=== PATIENT | male | born 1965 | race Caucasian/White ===

== ENCOUNTER 2018-12-05 19:48 | Emergency (ER) | payer MEDICAID, OTHER ==
[~2018-12-05] VITALS: Wt 103.6 kg
[~2018-12-05 19:48] MED LIST: ACET325T33 PO; ACET500C5 PO; ALBU18HF INHALATION; AZIT250T PO; GUAI473L22 PO; GUAI5SYR2 PO; benazepril PO
[2018-12-05] MEDS ORDERED: KETOROLAC 60 MG INJ IM STA (21:46)
[2018-12-05 22:20] VITALS: BP 155/90; PULSE 72; RESP 18
[2018-12-05] MEDS ORDERED: IBUP-1542 PO (22:27)
--- NOTE | 2018-12-06 00:45 | ERD ---
ER Documentation Chief Complaint Chief Complaint bib self, cc: toothache x 10 days, given atb po tx, with tylenol HPI 53-year-old male patient with a past medical history of hypertension presents the ED complaining of a dental pain that started about 10 days ago. Patient reports that he went to the dentist earlier today and was given Tylenol 3 and amoxicillin. Patient reports that he has been taking the amoxicillin however reports that the Tylenol 3 did not work for his symptoms of pain. Denies any fever, chills, nausea, vomiting, neck stiffness, chest pain, shortness of breath, abdominal pain. Patient reports that he still able to swallow liquids and solids without any difficulty. Patient reports that his right first premolar of the lower teeth has been causing him pain and before he gets a root canal, he needs to take the antibiotics. ROS All systems reviewed and are negative except as per history of present illness. Medications Home Meds Active Scripts Ibuprofen* (Motrin*) 600 Mg Tab, 600 MG PO Q6, #30 TAB Prov:LYNN ARCE PA-C 12/05/18 Albuterol Sulfate* (Ventolin HFA*) 18 Gm Hfa.aer.ad, 2 PUFF INHALATION Q6H, #1 INHALER Prov:ANISH VELA, [employer] TECHNICAL MANAGER 01/03/17 Guaifenesin-Codeine Phosphate* (Guaifenesin* AC Cough Syrup) 473 Ml Liquid, 10 ML PO Q4H PRN for COUGH for 7 Days, ML Prov:ANISH VELA, [employer] TECHNICAL MANAGER 01/03/17 Acetaminophen* (Tylenol*) 325 Mg Tablet, 2 TAB PO Q6 PRN for PAIN AND OR ELEVATED TEMP, #20 TAB Prov:ANISH VELA [employer] TECHNICAL MANAGER 01/03/17 Acetaminophen* (Tylophen*) 500 Mg Capsule, 1 CAP PO Q6H PRN for PAIN AND OR ELEVATED TEMP, #20 CAP Prov:GABRIEL PAINTING NP 04/04/16 Guaifenesin-Dextromethorphan* (Robitussin* DM) 100MG/10MG/5ML Syrup, 5 ML PO Q6H PRN for COUGH, #120 ML 0 Refills Prov:PRAVEENA LLOYD PA-C 02/06/16 Acetaminophen* (Tylophen*) 500 Mg Capsule, 1 CAP PO Q6H PRN for PAIN AND OR ELEVATED TEMP, #30 CAP 0 Refills Prov:PRAVEENA LLOYD PA-C 02/06/16 Azithromycin* (Zithromax*) 250 Mg Tablet, 250 MG PO .ALHAJI DIRECTED, #6 TAB 0 Refills TAKE 500 MG (2 TABS) THE FIRST DAY THEN 250 MG (1 TAB) DAYS 2-5 Prov:PRAVEENA LLOYD PA-C 02/06/16 Reported Medications [benazepril] No Conflict Check, 20 MG PO DAILY 11/18/13 Allergies Allergies: Coded Allergies: No Known Drug Allergies (Verified Allergy, Mild, 08/12/13) PMhx/Soc Medical and Surgical Hx: pt denies Medical Hx, pt denies Surgical Hx History of Surgery: Yes (RENAL STONE 2007, ) Anesthesia Reaction: No Hx Neurological Disorder: No Hx Respiratory Disorders: No Hx Cardiac Disorders: Yes (HTN) Hx Psychiatric Problems: No Hx Miscellaneous Medical Probl: Yes (high cholesterol, BPH) Hx Alcohol Use: No Hx Substance Use: No Hx Tobacco Use: No Smoking Status: Never smoker FmHx Family History: No diabetes, No coronary disease Physical Exam Vitals Vital Signs Date Temp Pulse Resp B/P (MAP) Pulse Ox O2 O2 Flow FiO2 Time Delivery Rate 12/05/18 98.7 72 18 155/90 98 Room Air 22:20 (111) 12/05/18 97.8 69 19 193/114 100 19:53 (140) Physical Exam Const: [id number], well-nourished. In no acute distress. Head: Atraumatic, normocephalic Eyes: Normal Conjunctiva without injection. No purulent discharge. PERRL. EOMI ENT: Normal external ear. Ear canal without erythema. Tympanic membrane pearly powell without effusion or bulging. Nasal canal clear with normal turbinates. Teeth decay of the right mandibular first molar. No fluctuance or induration. Moist oropharynx without tonsillar exudates. Non-erythematous pharynx. Uvula midline. No drooling. No trismus. Neck: Full range of motion. No meningismus. No cervical lymphadenopathy. Resp: Clear to auscultation bilaterally. No wheezing, rhonchi, rales, or crackles. No accessory muscle use. No retractions. Cardio: Regular rate and rhythm. No murmurs, rubs or gallops. Abd: Soft, non tender, non distended. Normal bowel sounds. No palpable masses. No rebound tenderness. No guarding. Skin: No petechiae or rashes Back: No midline tenderness. No CVA tenderness. Ext: No cyanosis, or edema. Neur: Awake and alert. Psych: Normal Mood and Affect Results 24 hrs Current Medications Medications Dose Sig/Narendra Start Time Status Last (Trade) Ordered Route PRN Stop Time Admin Dose Reason Admin Ketorolac 60 mg ONCE STAT 12/05/18 DC 12/05/18 Tromethamine IM 21:46 12/05/18 21:53 (Toradol) 21:47 Procedures/MDM 53-year-old male patient with a past medical history of hypertension presents to ED complaining of right first molar mandibular pain that started about 10 days ago. Patient is afebrile and nontoxic-appearing patient's pain was treated with 60 mg IM Toradol here in the ED with improvement of his pain. Patient is alrea dy taking amoxicillin for his dental infection. Patient is here for pain control. Patient is appropriate for outpatient management and will be given a prescription for ibuprofen 600 mg here. Patient's physical exam include lungs which were clear to auscultation and a normal pulse oximetry. Bilateral ears pearly carvalho. No tenderness to palpation of tragus or mastoid. Low suspicion for dental abscess mastoiditis, otitis externa, otitis media. Patient is speaking in full sentences. There is a low suspicion for pneumonia, epiglottitis, croup, sinusitis, peritonsillar abscess, Rolo's angina, retropharyngeal abscess, meningitis, sepsis, acute abdomen or other emergent conditions. Diagnosis: Toothache Discharge medications: Ibuprofen Follow up with primary care physician in 1-2 days. Instructed patient to return to the ED sooner for any worsening symptoms. Patient's questions were answered. Patient is hemodynamically stable. Patient understood and agreed with discharge plan. Patient discharged stable. Disclaimer: Inadvertent spelling and grammatical errors are likely due to EHR/dictation software use and do not reflect on the overall quality of patient care. Also, please note that the electronic time recorded on this note does not necessarily reflect the actual time of the patient encounter. Departure Diagnosis: Primary Impression: Toothache Condition: Stable Patient Instructions: Dental Pain Referrals: COMMUNITY CLINICS YOU HAVE RECEIVED A MEDICAL SCREENING EXAM AND THE RESULTS INDICATE THAT YOU DO NOT HAVE A CONDITION THAT REQUIRES URGENT TREATMENT IN THE EMERGENCY DEPARTMENT. FURTHER EVALUATION AND TREATMENT OF YOUR CONDITION CAN WAIT UNTIL YOU ARE SEEN IN YOUR DOCTORS OFFICE WITHIN THE NEXT 1-2 DAYS. IT IS YOUR RESPONSIBILITY TO MAKE AN APPOINTMENT FOR FOLOW-UP CARE. IF YOU HAVE A PRIMARY DOCTOR --you should call your primary doctor and schedule an appointment IF YOU DO NOT HAVE A PRIMARY DOCTOR YOU CAN CALL OUR PHYSICIAN REFERRAL HOTLINE AT IF YOU CAN NOT AFFORD TO SEE A PHYSICIAN YOU CAN CHOSE FROM THE FOLLOWING [facility] [address] [facility]. [facility] [address] [address] [facility] [address] [facility] [address] [facility] [facility] [address] [facility]. [facility] [address] [facility]. [facility] YOU HAVE RECEIVED A MEDICAL SCREENING EXAM AND THE RESULTS INDICATE THAT YOU DO NOT HAVE A CONDITION THAT REQUIRES URGENT TREATMENT IN THE EMERGENCY DEPARTMENT. FURTHER EVALUATION AND TREATMENT OF YOUR CONDITION CAN WAIT UNTIL YOU ARE SEEN IN YOUR DOCTORS OFFICE WITHIN THE NEXT 1-2 DAYS. IT IS YOUR RESPONSIBILITY TO MAKE AN APPOINTMENT FOR FOLOW-UP CARE. IF YOU HAVE A PRIMARY DOCTOR --you should call your primary doctor and schedule and appointment IF YOU DO NOT HAVE A PRIMARY DOCTOR YOU CAN CALL OUR PHYSICIAN REFERRAL HOTLINE AT . IF YOU CAN NOT AFFORD TO SEE A PHYSICIAN YOU CAN CHOSE FROM THE FOLLOWING [facility]: [facility] [address] [place] [address] [facility] [address] [place] [address] [facility] [address] [place] [address] [facility] ([facility] walk in clinic) Additional Instructions: Call your dentist TOMORROW for an appointment during the next 2-3 days.See the doctor sooner or return here if your condition worsens before your appointment fabian ramirez. Complete all of your antibiotics. Take ibuprofen with food. LYNN ARCE PA-C Dec 06, 2018 00:45
== END 2018-12-05 22:40 | disposition home or self-care (01) ==
LOC: FTE 19:48
DX: K08.89 Other specified disorders of teeth and supporting structures (principal); I10 Essential (primary) hypertension
CPT/HCPCS: 96372; J1885; Z7502

== ENCOUNTER 2019-07-03 15:50 | Emergency (ER) | payer OTHER ==
[~2019-07-03] VITALS: Ht 172.7 cm; Wt 101.0 kg
[~2019-07-03 15:50] MED LIST changes: +ACET-141 PO; +BENA40TA56 PO; +CIPR500T4 PO; +IBUP-1542 PO; +LORA10TA3 PO; +OMEP20CA16 PO; +TRAM50TA2 PO
[2019-07-03 15:51] VITALS: Ht 172.7 cm; Wt 101.0 kg
--- NOTE | 2019-07-03 18:23 | ERD ---
ER Documentation Chief Complaint Chief Complaint left flank pain HPI The patient is a 53-year-old male, presenting to the ER because of left flank pain for the last 18 days. He was seen at [facility] where he had a noncontrast abdominal pelvic CT that showed left kidney stone, he was discharged with ibuprofen. He was again seen at [facility] 3 days ago and had contrast abdominal pelvic CT that was unremarkable, was discharged with Cipro and Tylenol possible prostate infection. He complains of minimal intermittent left flank pain, denies fever, chills, neck pain, chest pain, dyspnea, diarrhea, constipation. He does not smoke, drinks socially Past medical history: History of kidney stone, dyslipidemia, cholelithiasis, hypertension Past surgical history: Left kidney stones ROS All systems reviewed and are negative except as per history of present illness. Medications Home Meds Active Scripts Tramadol HCl (Tramadol HCl) 50 Mg Tablet, 50 MG PO Q6 PRN for PAIN, #15 TAB Prov:ALEXANDER KRISHNAN MD 07/03/19 Reported Medications Loratadine* (Loratadine*) 10 Mg Tablet, 10 MG PO DAILY, #30 TAB 07/03/19 Benazepril Hcl* (Benazepril Hcl*) 40 Mg Tablet, 40 MG PO DAILY, #30 TAB 07/03/19 Acetaminophen* (Acetaminophen*) 500 MG Extra Strength Tablet, 500 MG PO Q8H PRN for PAIN AND OR ELEVATED TEMP, TAB 07/03/19 Ciprofloxacin Hcl* (Ciprofloxacin Hcl*) 500 Mg Tablet, 500 MG PO BID, #14 TAB FOR 14 DAYS,STOP DATE 07/09/19 07/03/19 Omeprazole* (Omeprazole*) 20 Mg Capsule.dr, 20 MG PO DAILY, #30 CAP 07/03/19 Discontinued Reported Medications [benazepril] No Conflict Check, 20 MG PO DAILY 11/18/13 Discontinued Scripts Ibuprofen* (Motrin*) 600 Mg Tab, 600 MG PO Q6, #30 TAB Prov:LYNN ARCE PA-C 12/05/18 Albuterol Sulfate* (Ventolin HFA*) 18 Gm Hfa.aer.ad, 2 PUFF INHALATION Q6H, #1 INHALER Prov:ANISH VELA, CONTACT CLERK 01/03/17 Guaifenesin-Codeine Phosphate* (Guaifenesin* AC Cough Syrup) 473 Ml Liquid, 10 ML PO Q4H PRN for COUGH for 7 Days, ML Prov:ANISH VELA, CONTACT CLERK 01/03/17 Acetaminophen* (Tylenol*) 325 Mg Tablet, 2 TAB PO Q6 PRN for PAIN AND OR ELEVATED TEMP, #20 TAB Prov:ANISH VELA, CONTACT CLERK 01/03/17 Acetaminophen* (Tylophen*) 500 Mg Capsule, 1 CAP PO Q6H PRN for PAIN AND OR ELEVATED TEMP, #20 CAP Prov:GABRIEL PAINTING CONTACT CLERK 04/04/16 Guaifenesin-Dextromethorphan* (Robitussin* DM) 100MG/10MG/5ML Syrup, 5 ML PO Q6H PRN for COUGH, #120 ML 0 Refills Prov:PRAVEENA LLOYD PA-C 02/06/16 Acetaminophen* (Tylophen*) 500 Mg Capsule, 1 CAP PO Q6H PRN for PAIN AND OR E LEVATED TEMP, #30 CAP 0 Refills Prov:PRAVEENA LLOYD PA-C 02/06/16 Azithromycin* (Zithromax*) 250 Mg Tablet, 250 MG PO .ZPACK DIRECTED, #6 TAB 0 Refills TAKE 500 MG (2 TABS) THE FIRST DAY THEN 250 MG (1 TAB) DAYS 2-5 Prov:PRAVEENA LLOYD PA-C 02/06/16 Allergies Allergies: Coded Allergies: No Known Drug Allergies (Verified Allergy, Mild, 07/03/19) PMhx/Soc History of Surgery: Yes (RENAL STONE 2007, ) Anesthesia Reaction: No Hx Neurological Disorder: No Hx Respiratory Disorders: No Hx Cardiac Disorders: Yes (HTN) Hx Psychiatric Problems: No Hx Miscellaneous Medical Probl: Yes (high cholesterol, BPH) Hx Alcohol Use: No Hx Substance Use: No Hx Tobacco Use: No Physical Exam Vitals Vital Signs Date Temp Pulse Resp B/P (MAP) Pulse Ox O2 O2 Flow FiO2 Time Delivery Rate 07/03/19 99.6 95 20 177/115 97 15:51 (135) Physical Exam Const: No acute distress. Head: Atraumatic. Eyes: Normal Conjunctiva. ENT: Normal External Ears, Nose and Mouth. Neck: Full range of motion. No meningismus. Resp: Clear to auscultation bilaterally. Cardio: Regular rate and rhythm. Abd: Soft, non distended, normal bowel sounds, mild left flank discomfort, no right lower quadrant/right upper quadrant/epigastric/rigidity or CVA tenderness Skin: No petechiae or rashes. Back: No midline or flank tenderness. Ext: No cyanosis, or edema. Neur: Awake and alert. No focal deficit Psych: Normal Mood and Affect. Result Diagram: 07/03/19 1841 07/03/19 1841 Results 24 hrs Laboratory Tests Test 07/03/19 18:41 07/03/19 19:12 White Blood Count 12.5 10^3/ul Red Blood Count 5.39 10^6/ul Hemoglobin 15.9 g/dl Hematocrit 48.7 % Mean Corpuscular Volume 90.4 fl Mean Corpuscular Hemoglobin 29.5 pg Mean Corpuscular Hemoglobin Concent 32.6 g/dl Red Cell Distribution Width 12.1 % Platelet Count 247 10^3/UL Mean Platelet Volume 9.9 fl Immature Granulocytes % 0.200 % Neutrophils % 62.8 % Lymphocytes % 28.6 % Monocytes % 5.0 % Eosinophils % 2.8 % Basophils % 0.6 % Nucleated Red Blood Cells % 0.0 /100WBC Immature Granulocytes # 0.020 10^3/ul Neutrophils # 7.9 10^3/ul Lymphocytes # 3.6 10^3/ul Monocytes # 0.6 10^3/ul Eosinophils # 0.4 10^3/ul Basophils # 0.1 10^3/ul Nucleated Red Blood Cells # 0.0 10^3/ul Sodium Level 141 mmol/L Potassium Level 4.2 mmol/L Chloride Level 104 mmol/L Carbon Dioxide Level 29 mmol/L Anion Gap 8 Blood Urea Nitrogen 13 mg/dl Creatinine 1.02 mg/dl Est Glomerular Filtrat Rate mL/min > 60 mL/min Glucose Level 112 mg/dl Calcium Level 9.5 mg/dl Total Bilirubin 0.6 mg/dl Direct Bilirubin 0.00 mg/dl Indirect Bilirubin 0.6 mg/dl Aspartate Amino Transf (AST/SGOT) 36 IU/L Alanine Aminotransferase (ALT/SGPT) 74 IU/L Alkaline Phosphatase 121 IU/L Total Protein 8.1 g/dl Albumin 4.6 g/dl Globulin 3.50 g/dl Albumin/Globulin Ratio 1.31 Lipase 35 U/L Bedside Urine pH (LAB) 5.5 Bedside Urine Protein (LAB) Negative Bedside Urine Glucose (UA) Negative Bedside Urine Ketones (LAB) Negative Bedside Urine Blood Trace-intact Bedside Urine Nitrite (LAB) Negative Bedside Urine Leukocyte Esterase (L Negative Current Medications Medications Dose Sig/Narendra Start Time Status Last (Trade) Ordered Route PRN Stop Time Admin Dose Reason Admin Ketorolac 30 mg ONCE STAT 07/03/19 DC 07/03/19 Tromethamine IV 18:32 07/03/19 18:55 (Toradol) 18:34 Morphine 4 mg ONCE STAT 07/03/19 DC 07/03/19 Sulfate IV 18:32 07/03/19 18:55 (morphine) 18:34 Ondansetron 4 mg ONCE STAT 07/03/19 DC 07/03/19 HCl (Zofran IV 18:32 07/03/19 18:55 Inj) 18:34 Procedures/MDM MEDICAL MAKING DECISION: The patient is a 53-year-old male, presenting with acute left flank pain, most likely due to renal colic. He was treated with Toradol 30 mg IV and morphine 4 mg IV for pain and Zofran 4 mg IV for nausea with good response, is stable for outpatient follow-up The differential diagnoses considered include but are not limited to cholelithiasis, cholecystitis, choledocholithiasis, cholangitis, pancreatitis, hepatitis, gastritis, peptic ulcer disease, gastric ulcer, appendicitis, cystitis, diverticulitis, partial small bowel obstruction. Departure Diagnosis: Primary Impression: Flank pain Condition: Good Comments He was discharged with Ultram and advised to continue Cipro I discussed the findings with the patient. I advised the patient to follow-up with the primary physician in about 1-2 days, sooner if needed and return if any concern. Disclaimer: Inadvertent spelling and grammatical errors are likely due to EHR/dictation software use and do not reflect on the overall quality of patient care. Also, please note that the electronic time recorded on this note does not necessarily reflect the actual time of the patient encounter. ALEXANDER KRISHNAN MD Jul 03, 2019 18:22
[2019-07-03] MEDS ORDERED: KETOROLAC 30 MG INJ IV STA (18:32)
[2019-07-03] MEDS ORDERED: ONDANSETRON 4 MG INJ IV STA (18:32)
[2019-07-03] MEDS ORDERED: morphine 4 MG/ML VIAL IV STA (18:32)
[2019-07-03 20:50] VITALS: BP 140/99; PULSE 65; RESP 20
== END 2019-07-03 21:05 | disposition home or self-care (01) ==
LOC: E/R 15:50
DX: R10.9 Unspecified abdominal pain (principal); I10 Essential (primary) hypertension
CPT/HCPCS: 36415; 80053; 81003; 83690; 85025; 96374; 96375; J1885; J2270; J2405; Z7502